=== PATIENT | female | born 1965 | race American Indian/Alaskan Native ===

== ENCOUNTER 2017-12-16 14:25 | Emergency (ER) | payer OTHER ==
[2017-12-16] MEDS ORDERED: ULTRAM PO ONE (15:49)
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
--- NOTE | 2017-12-16 16:50 | Cat Scan Report ---
FINAL REPORT EXAM: CT FACIAL BONES WO CON HISTORY: left sided facial pain TECHNIQUE: Spiral CT scanning of the facial bones with multiplanar reformations. PRIORS: None. FINDINGS: No acute fracture. Mandible, zygomatic arches, orbits, paranasal sinuses, and pterygoid plates appear intact. Optic globes grossly intact. Mild soft tissue edema or contusion in the left periportal orbital region. Lobular mucosal thickening or possible mucous retention cysts versus polyps in bilateral inferior maxillary sinuses. No abnormal air-fluid levels. IMPRESSION: 1. No acute fracture.
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
--- NOTE | 2017-12-16 16:54 | XRay Report ---
FINAL REPORT EXAM: XR HIP 2-3V LT HISTORY: left hip pain TECHNIQUE: AP view of pelvis and 2 views of left hip. PRIORS: None. FINDINGS: Mild degenerative changes in bilateral hip joints and scattered about the bony pelvis. No apparent fracture or dislocation. Soft tissues grossly unremarkable. IMPRESSION: 1. No acute osseous abnormality. 2. Degenerative changes.
[2017-12-16 19:34] VITALS: BP 173/104
== END 2017-12-16 19:34 | disposition home or self-care (01) ==
LOC: ED 14:25
DX: S02.5XXA Fracture of tooth (traumatic), initial encounter for closed fracture (principal); S16.1XXA Strain of muscle, fascia and tendon at neck level, initial encounter; S05.12XA Contusion of eyeball and orbital tissues, left eye, initial encounter; M25.552 Pain in left hip; I10 Essential (primary) hypertension; J45.909 Unspecified asthma, uncomplicated; F41.9 Anxiety disorder, unspecified; F17.200 Nicotine dependence, unspecified, uncomplicated; Z88.4 Allergy status to anesthetic agent; V89.2XXA Person injured in unspecified motor-vehicle accident, traffic, initial encounter; Y93.89 Activity, other specified; Y99.8 Other external cause status; Y92.410 Unspecified street and highway as the place of occurrence of the external cause
CPT/HCPCS: 70486; 72125